=== PATIENT | female | born 1950 | race Caucasian/White ===

== ENCOUNTER → 2017-10-11 12:42 | Outpatient (CLI) | payer SELFPAY ==
--- NOTE | 2017-10-11 12:50 | CDU_ITS ---
Reason For Study: carotid stenosis Rt. Velocities/BP Lt. Velocities/BP Prox CCA 125.0/16.4 cm/sec. Prox CCA 101.0/17.0 cm/sec. Mid CCA 64.5/14.1 cm/sec. Mid CCA 91.5/24.0 cm/sec. Dist CCA 67.4/12.3 cm/sec. Dist CCA 88.5/24.0 cm/sec. Prox ICA 32.6/9.04 cm/sec. Prox ICA 92.0/32.8 cm/sec. Mid ICA 87.4/27.6 cm/sec. Mid ICA 95.6/35.8 cm/sec. Dist ICA 90.3/27.0 cm/sec. Dist ICA 90.4/32.2 cm/sec. Rt. ICA/CCA = 90.3/64.5=1.4. Lt. ICA/CCA = 95.6/91.5=1.0. Prox ECA 114.0/11.7 cm/sec. Prox ECA 106.0/9.97 cm/sec. Rt. Vert. 50.7/10.2 cm/sec. Lt. Vert. 42.0/15.3 cm/sec. Right Extracranial There is intimal thickening but no significant atherosclerotic plaque noted in the right common carotid artery. There is homogeneous, smooth atherosclerotic plaque noted in the right internal carotid artery. There is homogeneous, smooth atherosclerotic plaque noted in the right external carotid artery. Antegrade flow is noted in the right vertebral artery. Left Extracranial There is intimal thickening but no significant atherosclerotic plaque noted in the left common carotid artery. There is homogeneous, smooth atherosclerotic plaque noted in the left internal carotid artery. There is no significant atherosclerotic plaque noted in the left external carotid artery. Antegrade flow is noted in the left vertebral artery. There is heterogeneous, irregular atherosclerotic plaque noted in the left bulb. Procedure Carotid Duplex [id number]. The exam was diagnostic. Exam performed in department. Interpretation Summary Mild (<50%) stenosis right extracranial internal carotid. Mild (<50%) stenosis left extracranial internal carotid. Flow within the vertebral arteries is antegrade bilaterally. Ordering Physician: Monik Wilkins Referring Physician: MONIK WILKINS Performed By: Felicitas Pike RDCS, ALIYA
== END ==
PROVIDERS: Family Provider Nurse Practitioner Family; PCP Nurse Practitioner Family
DX: I65.23 Occlusion and stenosis of bilateral carotid arteries (principal)
CPT/HCPCS: 93880